=== PATIENT | male | born 1940 | race Caucasian/White ===

== ENCOUNTER 2016-12-22 16:22 | Emergency (ER) | payer MEDICARE, BC ==
[2016-12-22] MEDS ORDERED: Albuterol 0.083% 2.5 MG/3 ML Neb Soln NEB ONE ×2 (16:38→20:07)
--- NOTE | 2016-12-22 16:45 | EDM.PDOC ---
ED HPI GENERAL MEDICAL PROBLEM - General Chief Complaint: Respiratory Problem Stated Complaint: SOB Time Seen by Provider: 12/22/16 16:30 Source of Information: Reports: Patient, Family History Limitations: Reports: Other ([facility], no [facility] records[facility] - History of Present Illness INITIAL COMMENTS - FREE TEXT/NARRATIVE: 76 yo male ME patient([facility]) presents with gradually more SOB for the past 10 days. Was seen in [facility] a week ago last Saturday and that day they thought he was fine, but it was that day that the SOB began. No chest pain. No fever. Does not want to be intubated if possible, but will accept it as a last resort. He nor his family has discussed his deteriorating condition with the ME. Has taken none of his oral meds today only his breathing tx's. EMS gave albuterol x 2, Duoneb x 1, and Solumedrol 125 mg IV en route from his home in [place]. Onset: Gradual Onset Date: 12/12/16 Duration: Day(s):, Getting Worse Location: Reports: Generalized Quality: Reports: Other (No pain, SOB mainly) Severity: Severe Improves with: Reports: None Worsens with: Reports: Movement Context: Reports: Other (hx of Chronic lung dz) Associated Symptoms: Reports: Shortness of Breath, Weakness. Denies: Fever/ Chills Treatments BASE MANAGER: Reports: Other (see below) (Breathing tx's, Solumedrol 125 mg IV ) - Related Data Allergies Allergy/AdvReac Type Severity Reaction Status Date / Time iodine Allergy Anaphylactic Verified 12/22/16 16:33 Shock shellfish derived Allergy Hives Verified 12/22/16 18:10 Home Meds: Home Meds Albuterol [Proventil HFA] 2 puff INH BID 12/22/16 [History] Alendronate [Fosamax] 70 mg PO WEEKLY 12/22/16 [History] Budesonide/Formoterol [Symbicort 160-4.5 MCG] 2 puff IN BID 12/22/16 [History] Fluticasone Propionate [Flonase] 2 inh BRANDON DAILY 12/22/16 [History] Nitroglycerin 0.3 mg PO ASDIRECTED 12/22/16 [History] Omeprazole 20 mg PO DAILY 12/22/16 [History] Prednisone [IJD: predniSONE] 10 mg PO DAILY 12/22/16 [History] Tiotropium [Spiriva HandiHaler] 1 spray IN DAILY 12/22/16 [History] amLODIPine Besylate [Norvasc] 1.25 mg PO DAILY 12/22/16 [History] atorvaSTATin [Lipitor] 20 mg PO BEDTIME 12/22/16 [History] guaiFENesin [Guaifenesin] 800 mg PO BID PRN 12/22/16 [History] metFORMIN [Glucophage] 250 mg PO BID 12/22/16 [History] ED ROS GENERAL - Review of Systems Review Of Systems: See Below Constitutional: Reports: No Symptoms HEENT: Reports: No Symptoms Respiratory: Reports: Shortness of Breath. Denies: Pleuritic Chest Pain, Hemoptysis Cardiovascular: Reports: No Symptoms GI/Abdominal: Reports: Anorexia : Reports: No Symptoms Musculoskeletal: Reports: No Symptoms Skin: Reports: No Symptoms Neurological: Reports: No Symptoms Psychiatric: Reports: No Symptoms ED EXAM, GENERAL - Physical Exam Exam: See Below Exam Limited By: No Limitations General Appearance: Alert, Anxious, Severe Distress, Thin Eye Exam: Bilateral Eye: Normal Inspection Ears: Normal External Exam, Normal Canal, Hearing Grossly Normal Ear Exam: Bilateral Ear: Auricle Normal, Canal Normal Nose: Normal Inspection, Normal Mucosa, No Blood Throat/Mouth: Normal Inspection, Normal Lips, Normal Oropharynx, Normal Voice, No Airway Compromise Head: Atraumatic, Normocephalic Neck: Normal Inspection Respiratory/Chest: Decreased Breath Sounds, Accessory Muscle Use, Other ( tachypnea) Cardiovascular: Tachycardia GI/Abdominal: Soft, Non-Tender Back Exam: Normal Inspection. No: CVA Tenderness (R), CVA Tenderness (L) Extremities: Pedal Edema (both legs below the knees.) Neurological: Alert, Oriented, CN II-XII Intact, No Motor/Sensory Deficits Psychiatric: Normal Affect, Normal Mood Skin Exam: Warm, Dry, Intact, Normal Color, No Rash Lymphatic: No Adenopathy EKG INTERPRETATION EKG Date: 12/22/16 Time: 16:40 Rhythm: Other (? junctional tachy) Rate (Beats/Min): 159 Simms: Other P-Wave: Absent QRS: RBBB ST-T: Depressed (inf leads?) QT: Normal Comparison: NA - No Prior EKG Course - Vital Signs Text/Narrative:: No change in rate or rhythm with Cardizem 20 mg IV Adenosine 6 mg IV-no change adenosine 12 mg IV-no change Last Recorded V/S: Last Vital Signs Temp 35.7 C 12/22/16 16:44 Pulse 157 H 12/22/16 17:50 Resp 24 H 12/22/16 16:44 BP 97/72 12/22/16 17:50 Pulse Ox 15 L 12/22/16 16:44 - Orders/Labs/Meds Orders: Active Orders 24 hr Category Date Time Status BIPAP Adult [RT BiPAP/CPAP] [RC] ASDIRECTED Care 12/22/16 16:39 Active Cardiac Monitoring [RC] .As Directed Care 12/22/16 16:38 Active Johnson Catheter Insertion [Insert Urinary Catheter] [OM. Care 12/22/16 16:45 Ordered PC] Q24H RT Aerosol Therapy [RC] ASDIRECTED Care 12/22/16 16:38 Active Urinary Catheter Assessment [RC] ASDIRECTED Care 12/22/16 16:39 Active Chest 1V Frontal [CR] Stat Exams 12/22/16 16:36 Taken Chest w Cont [CT] Stat Exams 12/22/16 18:01 Ordered Labs: Laboratory Tests 12/22/16 12/22/16 12/22/16 Range/Units 16:37 16:37 16:37 WBC 14.9 H (4.5-11.0) K/uL RBC 4.34 (4.30-5.90) M/uL Hgb 13.4 (12.0-15.0) g/dL Hct 42.4 (40.0-54.0) % MCV 98 (80-98) fL MCH 31 (27-31) pg MCHC 32 (32-36) % Plt Count 148 L (150-400) K/uL D-Dimer, Quantitative 2270 H (0.0-400.0) ng/mL Puncture Site ABG pH (7.350-7.450) ABG pCO2 (35.0-42.0) mmHg ABG pO2 (75.0-100.0) mmHg ABG HCO3 (22.0-26.0) mmol/L ABG Total CO2 (23.0-27.0) mmol/L ABG O2 Saturation (95.0-98.0) % ABG O2 Content (15.0-23.0) %vol ABG Base Excess mm/L ABG Hemoglobin (13.5-18.0) g/dL ABG Oxyhemoglobin % ABG Carboxyhemoglobin (0.0-1.6) % ABG Methemoglobin % Tobi Test O2 Delivery Device Sodium 140 (140-148) mmol/L Potassium 4.5 (3.6-5.2) mmol/L Chloride 101 (100-108) mmol/L Carbon Dioxide 29 (21-32) mmol/L Anion Gap 10.0 (5.0-14.0) mmol/L BUN 22 H (7-18) mg/dL Creatinine 0.9 (0.8-1.3) mg/dL Est Cr Clr Drug Dosing TNP Estimated GFR (MDRD) > 60 (>60) Glucose 216 H (74-106) mg/dL Lactic Acid (0.4-2.0) mmol/L Calcium 8.8 (8.5-10.1) mg/dL Troponin I 0.044 (0.000-0.056) ng/mL NT-Pro-B Natriuret Pep 1509 H (5-450) pg/mL Urine Color Urine Appearance Urine pH (4.5-8.0) Ur Specific [place] (1.008-1.030) Urine Protein (NEGATIVE) mg/dL Urine Glucose (UA) (NEGATIVE) mg/dL Urine Ketones (NEGATIVE) mg/dL Urine Occult Blood (NEGATIVE) Urine Nitrite (NEGAITVE) Urine Bilirubin (NEGATIVE) Urine Urobilinogen (NORMAL) mg/dL Ur Leukocyte Esterase (NEGATIVE) Urine RBC (0-5) Urine WBC (0-5) Ur Epithelial Cells Amorphous Sediment Urine Bacteria Urine Mucus Urine Other Urinalysis Comment 12/22/16 12/22/16 12/22/16 Range/Units 16:46 16:49 17:18 WBC (4.5-11.0) K/uL RBC (4.30-5.90) M/uL Hgb (12.0-15.0) g/dL Hct (40.0-54.0) % MCV (80-98) fL MCH (27-31) pg MCHC (32-36) % Plt Count (150-400) K/uL D-Dimer, Quantitative (0.0-400.0) ng/mL Puncture Site Lt radial ABG pH 7.442 (7.350-7.450) ABG pCO2 44.7 H (35.0-42.0) mmHg ABG pO2 109.0 H (75.0-100.0) mmHg ABG HCO3 30.0 H (22.0-26.0) mmol/L ABG Total CO2 26.4 (23.0-27.0) mmol/L ABG O2 Saturation 98.3 H (95.0-98.0) % ABG O2 Content 18.4 (15.0-23.0) %vol ABG Base Excess 5.6 mm/L ABG Hemoglobin 13.6 (13.5-18.0) g/dL ABG Oxyhemoglobin 95.9 % ABG Carboxyhemoglobin 1.7 H (0.0-1.6) % ABG Methemoglobin 0.7 % Tobi Test Passed O2 Delivery Device Non rebr mask Sodium (140-148) mmol/L Potassium (3.6-5.2) mmol/L Chloride (100-108) mmol/L Carbon Dioxide (21-32) mmol/L Anion Gap (5.0-14.0) mmol/L BUN (7-18) mg/dL Creatinine (0.8-1.3) mg/dL Est Cr Clr Drug Dosing Estimated GFR (MDRD) (>60) Glucose (74-106) mg/dL Lactic Acid 2.3 H (0.4-2.0) mmol/L Calcium (8.5-10.1) mg/dL Troponin I (0.000-0.056) ng/mL NT-Pro-B Natriuret Pep (5-450) pg/mL Urine Color [place] Urine Appearance Cloudy Urine pH 5.0 (4.5-8.0) Ur Specific [place] 1.025 (1.008-1.030) Urine Protein Negative (NEGATIVE) mg/dL Urine Glucose (UA) 100 H (NEGATIVE) mg/dL Urine Ketones Negative (NEGATIVE) mg/dL Urine Occult Blood Negative (NEGATIVE) Urine Nitrite Negative (NEGAITVE) Urine Bilirubin Negative (NEGATIVE) Urine Urobilinogen 1 (NORMAL) mg/dL Ur Leukocyte Esterase Negative (NEGATIVE) Urine RBC 0-5 (0-5) Urine WBC 5-10 H (0-5) Ur Epithelial Cells Few Amorphous Sediment Moderate Urine Bacteria Few Urine Mucus Numerous Urine Other See note Urinalysis Comment See note Meds: Medications Discontinued Medications Generic Name Dose Route Start Last Admin Trade Name Brea PRN Reason Stop Dose Admin Adenosine 6 mg 12/22/16 17:58 12/22/16 18:03 Adenocard IVPUSH 12/22/16 17:59 6 mg NOW ONE Administration Adenosine 12 mg 12/22/16 18:14 12/22/16 18:18 Adenocard IVPUSH 12/22/16 18:15 12 mg NOW ONE Administration Albuterol 2.5 mg 12/22/16 16:38 12/22/16 17:20 Proventil Neb Soln NEB 12/22/16 16:39 2.5 mg ONETIME ONE Administration Diltiazem HCl 20 mg 12/22/16 17:39 12/22/16 17:50 Diltiazem IVPUSH 12/22/16 17:40 20 mg ONETIME ONE Administration Lactated Ringer's 1,000 mls @ 1,000 mls/hr 12/22/16 17:19 12/22/16 17:25 Ringers, Lactated IV 12/22/16 18:18 1,000 mls/hr BOLUS ONE Administration - Radiology Interpretation Free Text/Narrative:: CXR-bilateral small pleural effusions. Scattered nodules. No infiltrates. No pneumothorax. Departure - Departure Time of Disposition: 18:33 Disposition: Still A Patient 30 Condition: Poor Clinical Impression: Hypoxia, Elevated d-dimer, Tachycardia, Chronic lung disease, Mild dehydration - Discharge Information Referrals: PCP,None [Primary Care Provider] - Forms: ED Department Discharge - My Orders Last 24 Hours: My Active Orders 12/22/16 16:38 Cardiac Monitoring [RC] .As Directed RT Aerosol Therapy [RC] ASDIRECTED 12/22/16 16:39 BIPAP Adult [RT BiPAP/CPAP] [RC] ASDIRECTED Urinary Catheter Assessment [RC] ASDIRECTED 12/22/16 16:45 Johnson Catheter Insertion [Insert Urinary Catheter] [OM.PC] Q24H 12/22/16 18:01 Chest w Cont [CT] Stat - Assessment/Plan Last 24 Hours: My Active Orders 12/22/16 16:38 Cardiac Monitoring [RC] .As Directed RT Aerosol Therapy [RC] ASDIRECTED 12/22/16 16:39 BIPAP Adult [RT BiPAP/CPAP] [RC] ASDIRECTED Urinary Catheter Assessment [RC] ASDIRECTED 12/22/16 16:45 Johnson Catheter Insertion [Insert Urinary Catheter] [OM.PC] Q24H 12/22/16 18:01 Chest w Cont [CT] Stat
[2016-12-22] MEDS: Lactated Ringers 1,000 ML IV ONE ×2 (17:25→18:45)
[2016-12-22] MEDS ORDERED: Diltiazem 25 MG/5 ML SDV IVPUSH ONE (17:39)
[2016-12-22] MEDS ORDERED: Adenosine 6 MG/2 ML SDV IVPUSH ONE ×2 (17:58→18:14)
[2016-12-22] MEDS ORDERED: Lactated Ringers 1,000 ML IV SCH (18:45)
[2016-12-22] MEDS ORDERED: Furosemide 20 MG/2 ML VIAL IVPUSH ONE (18:51)
[2016-12-22] MEDS ORDERED: Diltiazem 100 MG in Sodium Chloride 0.9% 100 ML IV SCH (19:00)
[2016-12-22] MEDS ORDERED: Magnesium Sulfate/Water 2 GM in Premix Bag 1 BAG IV ONE (19:27)
[2016-12-22] MEDS ORDERED: Sodium Chloride 0.9% 1,000 ML IV SCH (19:30)
[2016-12-22] MEDS ORDERED: LORazepam 0.5 MG Tab PO ONE (20:09)
--- NOTE | 2016-12-22 21:06 | PCM.CONS ---
H&P History of Present Illness - General Date of Service: 12/22/16 Source of Information: Patient, Family, Provider, RN Notes Reviewed History Limitations: Reports: No Limitations - History of Present Illness Initial Comments - Free Text/Narative: Mr. Cruz is a 76-year-old gentleman who been asked to see by Dr. Matthews or evaluation for possible admission versus transfer. Patient has a known history of oxygen-dependent COPD for the past several years. He [facility] but is up staying at [place] near [place]. Over the past 3-4 days has noted that his heart rate has been elevated in the range of 150-160 and during that period of time has become progressively more short of breath. He arrived in the emergency department this evening with a high respiratory rate and hypoxia with an oxygen saturation of 80 despite supplemental oxygen. He denies any symptoms of chest pain or pressure and has had no pleuritic pain. He has receiving nebulizer therapy in the emergency department, white blood cell count is elevated at 14,000 there is a modest elevation in lactic acid level, chest x-ray shows no obvious infiltrates. Heart rate has remained elevated despite having received a Adenicard 6 mg and 12 mg with no slowing of the rate. He also received 20 mg of IV diltiazem and was started on continuous infusion of diltiazem with no improvement in heart rate. Diltiazem has since been discontinued and it's felt likely that this narrow complex tachycardia is a sinus tachycardia and is physiologic related to underlying compromise. Respiratory status has stabilized with the BiPAP as long as were able to keep an adequate seal. Initial blood gases on the BiPAP for adequate follow-up blood gases were obtained but this was during a period of time were the seal was not as good and he did show evidence of some CO2 retention and not as good oxygenation. Blood pressure overall is been stable other was transient decrease in blood pressure but that's come up again since the Cardizem was discontinued. Venous Doppler studies of the lower extremities were obtained and are negative for any evidence of deep vein thrombosis. We were unable to proceed with CT scan and PE protocol because of a history of significant contrast allergy. - Related Data Allergies/Adverse Reactions: Allergies Allergy/AdvReac Type Severity Reaction Status Date / Time iodine Allergy Anaphylactic Verified 12/22/16 16:33 Shock shellfish derived Allergy Hives Verified 12/22/16 18:10 Home Medications: Home Meds Albuterol [Proventil HFA] 2 puff INH BID 12/22/16 [History] Alendronate [Fosamax] 70 mg PO WEEKLY 12/22/16 [History] Budesonide/Formoterol [Symbicort 160-4.5 MCG] 2 puff IN BID 12/22/16 [History] Fluticasone Propionate [Flonase] 2 inh BRANDON DAILY 12/22/16 [History] Nitroglycerin 0.3 mg PO ASDIRECTED 12/22/16 [History] Omeprazole 20 mg PO DAILY 12/22/16 [History] Prednisone [IJD: predniSONE] 10 mg PO DAILY 12/22/16 [History] Tiotropium [Spiriva HandiHaler] 1 spray IN DAILY 12/22/16 [History] amLODIPine Besylate [Norvasc] 1.25 mg PO DAILY 12/22/16 [History] atorvaSTATin [Lipitor] 20 mg PO BEDTIME 12/22/16 [History] guaiFENesin [Guaifenesin] 800 mg PO BID PRN 12/22/16 [History] metFORMIN [Glucophage] 250 mg PO BID 12/22/16 [History] Past Medical History HEENT History: Reports: Cataract, Impaired Vision Cardiovascular History: Reports: High Cholesterol, Hypertension Respiratory History: Reports: Asthma, COPD, Pneumonia, Recurrent, Sleep Apnea, SOB Gastrointestinal History: Reports: Diverticulosis, GERD Musculoskeletal History: Reports: Arthritis, Back Pain, Chronic, Fracture Endocrine/Metabolic History: Reports: Diabetes, Type II Oncologic (Cancer) History: Reports: Squamous Cell Carcinoma Dermatologic History: Reports: Psoriasis - Infectious Disease History Infectious Disease History: Reports: Chicken Pox - Past Surgical History GI Surgical History: Reports: Colonoscopy, Hernia, Abdominal, Hernia Repair/ Other Social & Family History - Tobacco Use Smoking Status *Q: Former Smoker Used Tobacco, but Quit: Yes Month Tobacco Last Used: 30 - Recreational Drug Use Recreational Drug Use: No H&P Review of Systems - Review of Systems: Review Of Systems: See Below General: Reports: Weakness. Denies: Fever, Chills HEENT: Reports: No Symptoms Pulmonary: Reports: Shortness of Breath, Cough, Sputum. Denies: Wheezing, Pleuritic Chest Pain, Hemoptysis Cardiovascular: Reports: Dyspnea on Exertion, Edema. Denies: Chest Pain, Palpitations, Orthopnea, PND, Lightheadedness Gastrointestinal: Reports: No Symptoms Genitourinary: Reports: No Symptoms Musculoskeletal: Reports: No Symptoms Skin: Reports: No Symptoms Psychiatric: Reports: No Symptoms Neurological: Reports: No Symptoms Hematologic/Lymphatic: Reports: No Symptoms Immunologic: Reports: No Symptoms Exam - Exam Exam: See Below - Vital Signs Vital Signs: Last Vital Signs Temp 97.0 F 12/22/16 20:24 Pulse 159 H 12/22/16 20:39 Resp 18 12/22/16 20:39 BP 106/81 12/22/16 20:39 Pulse Ox 96 12/22/16 20:39 Weight: 165 lb - Exam Quality Assessment: Supplemental Oxygen (With noninvasive positive pressure ventilation), Urinary Catheter HEENT: Conjunctiva Clear, Hearing Intact, Mucosa Moist & [place], Normal Nasal Septum, Posterior Pharynx Clear, Pupils Equal Neck: Supple, Trachea Midline, +2 Carotid Pulse wo Bruit Lungs: Decreased Breath Sounds. No: Crackles, Rales, Rhonchi, Wheezing Cardiovascular: Regular Rhythm, Normal S1, Normal S2, Tachycardia. No: Systolic Murmur, Diastolic Murmur GI/Abdominal Exam: Normal Bowel Sounds, Soft, Non-Tender, No Organomegaly, No Distention Extremities: Non-Tender, Pedal Edema Skin: Warm, Dry, Intact Neurological: Cranial Nerves Intact, Strength Equal Bilateral, Normal Speech, Normal Tone, Sensation Intact. No: Focal Deficit Neuro Extensive - Mental Status: Alert, Oriented x3, Normal Mood/Affect, Normal Cognition, Memory Intact - Patient Data Lab Results Last 24 hrs: Laboratory Results - last 24 hr 12/22/16 12/22/16 12/22/16 Range/Units 16:37 16:37 16:37 WBC 14.9 H (4.5-11.0) K/uL RBC 4.34 (4.30-5.90) M/uL Hgb 13.4 (12.0-15.0) g/dL Hct 42.4 (40.0-54.0) % MCV 98 (80-98) fL MCH 31 (27-31) pg MCHC 32 (32-36) % Plt Count 148 L (150-400) K/uL D-Dimer, Quantitative 2270 H (0.0-400.0) ng/mL Puncture Site ABG pH (7.350-7.450) ABG pCO2 (35.0-42.0) mmHg ABG pO2 (75.0-100.0) mmHg ABG HCO3 (22.0-26.0) mmol/L ABG Total CO2 (23.0-27.0) mmol/L ABG O2 Saturation (95.0-98.0) % ABG O2 Content (15.0-23.0) %vol ABG Base Excess mm/L ABG Hemoglobin (13.5-18.0) g/dL ABG Oxyhemoglobin % ABG Carboxyhemoglobin (0.0-1.6) % ABG Methemoglobin % Tobi Test O2 Delivery Device Sodium 140 (140-148) mmol/L Potassium 4.5 (3.6-5.2) mmol/L Chloride 101 (100-108) mmol/L Carbon Dioxide 29 (21-32) mmol/L Anion Gap 10.0 (5.0-14.0) mmol/L BUN 22 H (7-18) mg/dL Creatinine 0.9 (0.8-1.3) mg/dL Est Cr Clr Drug Dosing TNP Estimated GFR (MDRD) > 60 (>60) Glucose 216 H (74-106) mg/dL Lactic Acid (0.4-2.0) mmol/L Calcium 8.8 (8.5-10.1) mg/dL Magnesium (1.8-2.4) mg/dL Troponin I 0.044 (0.000-0.056) ng/mL NT-Pro-B Natriuret Pep 1509 H (5-450) pg/mL Urine Color Urine Appearance Urine pH (4.5-8.0) Ur Specific [place] (1.008-1.030) Urine Protein (NEGATIVE) mg/dL Urine Glucose (UA) (NEGATIVE) mg/dL Urine Ketones (NEGATIVE) mg/dL Urine Occult Blood (NEGATIVE) Urine Nitrite (NEGAITVE) Urine Bilirubin (NEGATIVE) Urine Urobilinogen (NORMAL) mg/dL Ur Leukocyte Esterase (NEGATIVE) Urine RBC (0-5) Urine WBC (0-5) Ur Epithelial Cells Amorphous Sediment Urine Bacteria Urine Mucus Urine Other Urinalysis Comment 12/22/16 12/22/16 12/22/16 Range/Units 16:46 16:49 17:18 WBC (4.5-11.0) K/uL RBC (4.30-5.90) M/uL Hgb (12.0-15.0) g/dL Hct (40.0-54.0) % MCV (80-98) fL MCH (27-31) pg MCHC (32-36) % Plt Count (150-400) K/uL D-Dimer, Quantitative (0.0-400.0) ng/mL Puncture Site Lt radial ABG pH 7.442 (7.350-7.450) ABG pCO2 44.7 H (35.0-42.0) mmHg ABG pO2 109.0 H (75.0-100.0) mmHg ABG HCO3 30.0 H (22.0-26.0) mmol/L ABG Total CO2 26.4 (23.0-27.0) mmol/L ABG O2 Saturation 98.3 H (95.0-98.0) % ABG O2 Content 18.4 (15.0-23.0) %vol ABG Base Excess 5.6 mm/L ABG Hemoglobin 13.6 (13.5-18.0) g/dL ABG Oxyhemoglobin 95.9 % ABG Carboxyhemoglobin 1.7 H (0.0-1.6) % ABG Methemoglobin 0.7 % Tobi Test Passed O2 Delivery Device Non rebr mask Sodium (140-148) mmol/L Potassium (3.6-5.2) mmol/L Chloride (100-108) mmol/L Carbon Dioxide (21-32) mmol/L Anion Gap (5.0-14.0) mmol/L BUN (7-18) mg/dL Creatinine (0.8-1.3) mg/dL Est Cr Clr Drug Dosing Estimated GFR (MDRD) (>60) Glucose (74-106) mg/dL Lactic Acid 2.3 H (0.4-2.0) mmol/L Calcium (8.5-10.1) mg/dL Magnesium (1.8-2.4) mg/dL Troponin I (0.000-0.056) ng/mL NT-Pro-B Natriuret Pep (5-450) pg/mL Urine Color [place] Urine Appearance Cloudy Urine pH 5.0 (4.5-8.0) Ur Specific [place] 1.025 (1.008-1.030) Urine Protein Negative (NEGATIVE) mg/dL Urine Glucose (UA) 100 H (NEGATIVE) mg/dL Urine Ketones Negative (NEGATIVE) mg/dL Urine Occult Blood Negative (NEGATIVE) Urine Nitrite Negative (NEGAITVE) Urine Bilirubin Negative (NEGATIVE) Urine Urobilinogen 1 (NORMAL) mg/dL Ur Leukocyte Esterase Negative (NEGATIVE) Urine RBC 0-5 (0-5) Urine WBC 5-10 H (0-5) Ur Epithelial Cells Few Amorphous Sediment Moderate Urine Bacteria Few Urine Mucus Numerous Urine Other See note Urinalysis Comment See note 12/22/16 12/22/16 Range/Units 18:50 19:11 WBC (4.5-11.0) K/uL RBC (4.30-5.90) M/uL Hgb (12.0-15.0) g/dL Hct (40.0-54.0) % MCV (80-98) fL MCH (27-31) pg MCHC (32-36) % Plt Count (150-400) K/uL D-Dimer, Quantitative (0.0-400.0) ng/mL Puncture Site Lt radial ABG pH 7.335 L (7.350-7.450) ABG pCO2 61.3 H (35.0-42.0) mmHg ABG pO2 62.4 L (75.0-100.0) mmHg ABG HCO3 31.8 H (22.0-26.0) mmol/L ABG Total CO2 28.8 H (23.0-27.0) mmol/L ABG O2 Saturation 89.2 L (95.0-98.0) % ABG O2 Content 16.3 (15.0-23.0) %vol ABG Base Excess 4.7 mm/L ABG Hemoglobin 13.2 L (13.5-18.0) g/dL ABG Oxyhemoglobin 88.0 % ABG Carboxyhemoglobin 0.7 (0.0-1.6) % ABG Methemoglobin 0.7 % Tobi Test Passed O2 Delivery Device Bipap Sodium (140-148) mmol/L Potassium (3.6-5.2) mmol/L Chloride (100-108) mmol/L Carbon Dioxide (21-32) mmol/L Anion Gap (5.0-14.0) mmol/L BUN (7-18) mg/dL Creatinine (0.8-1.3) mg/dL Est Cr Clr Drug Dosing Estimated GFR (MDRD) (>60) Glucose (74-106) mg/dL Lactic Acid (0.4-2.0) mmol/L Calcium (8.5-10.1) mg/dL Magnesium 1.5 L (1.8-2.4) mg/dL Troponin I (0.000-0.056) ng/mL NT-Pro-B Natriuret Pep (5-450) pg/mL Urine Color Urine Appearance Urine pH (4.5-8.0) Ur Specific [place] (1.008-1.030) Urine Protein (NEGATIVE) mg/dL Urine Glucose (UA) (NEGATIVE) mg/dL Urine Ketones (NEGATIVE) mg/dL Urine Occult Blood (NEGATIVE) Urine Nitrite (NEGAITVE) Urine Bilirubin (NEGATIVE) Urine Urobilinogen (NORMAL) mg/dL Ur Leukocyte Esterase (NEGATIVE) Urine RBC (0-5) Urine WBC (0-5) Ur Epithelial Cells Amorphous Sediment Urine Bacteria Urine Mucus Urine Other Urinalysis Comment Result Diagrams: 12/22/16 16:37 12/22/16 16:37 Consult PN Assessment/Plan Procedures: Procedures US EXAM CHEST (10/19/15) (1) Respiratory failure with hypoxia SNOMED Code(s): 75822977176389610 Code(s): J96.91 - RESPIRATORY FAILURE, UNSPECIFIED WITH HYPOXIA Current Visit: Yes (2) COPD (chronic obstructive pulmonary disease) SNOMED Code(s): 57731937 Code(s): J44.9 - CHRONIC OBSTRUCTIVE PULMONARY DISEASE, UNSPECIFIED Current Visit: Yes (3) Tachycardia with heart rate 141-160 beats per minute SNOMED Code(s): 6100193 Code(s): R00.0 - TACHYCARDIA, UNSPECIFIED Current Visit: Yes (4) Type 2 diabetes mellitus SNOMED Code(s): 27989218 Code(s): E11.9 - TYPE 2 DIABETES MELLITUS WITHOUT COMPLICATIONS Current Visit: Yes Problem List Initiated/Reviewed/Updated: Yes Plan: ASSESSMENT AND RECOMMENDATIONS HYPOXIC RESPIRATORY FAILURE-patient has known underlying COPD which is oxygen dependent. He has had increased cough but no evidence of infiltrate on chest x- ray. Respiratory status is stabilized with use of noninvasive positive pressure ventilation -Continue BiPAP -Nebulizer therapy as needed -Supplemental oxygen NARROW COMPLEX TACHYCARDIA-by history this is been present for at least 3 days. No improvement noted with attempted interventions in the emergency department as outlined above. Likely that this is physiologic sinus tachycardia related to underlying pulmonary emboli or cardiac process. BNP is elevated, d-dimer is elevated, troponin 2 have been within normal range. EKG shows no acute ST segment changes. -Transfer to tertiary care center for further evaluation and management TYPE 2 DIABETES MELLITUS OXYGEN-DEPENDENT COPD Requesting Provider: Dr. Matthews Date Consult Requested: 12/22/16 Reason for Consult: Hypoxia and tachycardia Patient History Reviewed: Yes Notified Requestor: Yes
--- NOTE | 2016-12-24 08:42 | CR ---
Chest 1V Frontal INDICATION: respiratory distress FINDINGS: Hyperinflation with emphysematous changes, most marked in the upper lobes. Scattered strand s of fibrosis or linear atelectasis in both lungs. Blunting of the costophrenic angles, greater on th e right could be due to pleural effusion or pleural thickening. Heart size accentuated by portable AP technique.
--- NOTE | 2016-12-24 08:52 | US ---
VL Duplex Lwr Ext Veins Comp INDICATION: high d-dimer, can't have IV contrast, SOB FINDINGS: Ultrasound examination of bilateral lower extremities using Doppler and compressive techniq ue demonstrates that the common femoral, femoral, and popliteal veins are patent, and negative for th rombus. The calf veins were segmentally visualized and are negative where seen. IMPRESSION: Bilateral lower extremities negative for deep venous thrombosis.
== END 2016-12-22 21:45 ==
LOC: JP.ED 16:22
DX: R09.02 Hypoxemia (principal); R79.1 Abnormal coagulation profile; R00.0 Tachycardia, unspecified; E86.0 Dehydration; J98.4 Other disorders of lung; Z79.899 Other long term (current) drug therapy; Z88.8 Allergy status to other drugs, medicaments and biological substances; Z91.013 Allergy to seafood
CPT/HCPCS: 36415; 36600; 51702; 71010; 80048; 81001; 82803; 83605; 83735; 83880; 84484; 85027; 85379; 93005; 93010; 93970; 94640; 94660; 96361; 96365; 96366; 96367; 96375; 99285; J0153; J1940; J3475; J3490; J7030; J7040; J7120